=== PATIENT | male | born 1955 | race Caucasian/White ===

== ENCOUNTER 2020-08-09 09:52 | Emergency (ER) | payer MEDICARE, MEDICAID ==
[~2020-08-09] VITALS: Ht 182.9 cm; Wt 99.3 kg
[2020-08-09] MEDS ORDERED: PRADAXA150 MG PO (10:11)
[2020-08-09] MEDS ORDERED: ASPIRIN81 MG PO (10:11)
[2020-08-09] MEDS ORDERED: FUROSEMIDE40 MG PO (10:12)
[2020-08-09] MEDS ORDERED: CARVEDILOL12.5 MG PO (10:12)
[2020-08-09] MEDS ORDERED: LISINOPRIL10 MG PO (10:12)
[2020-08-09] MEDS ORDERED: LIPITOR40 MG PO (10:13)
[2020-08-09] MEDS ORDERED: GLUCOPHAGE500 MG PO (10:13)
[2020-08-09] MEDS ORDERED: ALDACTONE25 MG PO (10:13)
--- NOTE | 2020-08-09 13:04 | EKG ---
[facility] [address] [facility] [address] [address] [place] [address] Signed Idioventricular rhythm Right bundle branch block Left anterior fascicular block Bifascicular block Anterolateral infarct , age undetermined Abnormal ECG No previous ECGs available Confirmed by POLA MAYS MD ([id number] on 08/09/2020 1:04:24 PM Electronically Signed By: POLA MAYS MD 08/09/20 1304 PATIENT NAME: DOMINIQUE CHAVIRA Electrocardiogram DATE OF : 53 PHYSICIAN: POLA MAYS MD REPORT #: [id number] REPORT IS CONFIDENTIAL AND NOT TO BE RELEASED WITHOUT AUTHORIZATION
== END 2020-08-09 18:00 | disposition short-term general hospital (02) ==
LOC: ED 09:52
DX: I25.5 Ischemic cardiomyopathy (principal); E11.9 Type 2 diabetes mellitus without complications; E78.00 Pure hypercholesterolemia, unspecified; I50.9 Heart failure, unspecified; Z79.899 Other long term (current) drug therapy; Z79.82 Long term (current) use of aspirin; Z79.84 Long term (current) use of oral hypoglycemic drugs; Z20.822 Contact with and (suspected) exposure to COVID-19
CPT/HCPCS: 80053; 84484; 85025; 93005; 93010; 99285-25; C9803; U0003